=== PATIENT | female | born 1940 | race African-American/Black ===

== ENCOUNTER 2016-09-20 15:43 | Emergency (ER) | payer MEDICARE ==
[~2016-09-20] VITALS: Ht 160 cm; Wt 96.0 kg
[~2016-09-20 15:43] MED LIST: AMLO10TA4 PO; FURO-152 PO; GLIM4TAB2 PO; LOVA40TA73 PO; METO100T9 PO; OLME1TAB19 PO; RAMI10CA PO; SITA100T6 PO
[2016-09-20] MEDS ORDERED: ONDANSETRON 4MG ODT PO ONE (17:45)
[2016-09-20] MEDS ORDERED: HYDROCODONE/ACETAMINOPHEN 5/325MG TABLET PO ONE (17:45)
[2016-09-20 19:05] VITALS: BP 132/78
== END 2016-09-20 19:19 | disposition home or self-care (01) ==
LOC: ER 17:10
DX: M79.89 Other specified soft tissue disorders (principal); E11.9 Type 2 diabetes mellitus without complications; Z88.5 Allergy status to narcotic agent; Z88.6 Allergy status to analgesic agent; Z79.899 Other long term (current) drug therapy; Z90.49 Acquired absence of other specified parts of digestive tract; Z90.710 Acquired absence of both cervix and uterus
CPT/HCPCS: 73110; 73130; 99284; Q0162

== ENCOUNTER 2017-01-16 18:55 | Emergency (ER) | payer MEDICARE ==
[~2017-01-16] VITALS: Ht 157.5 cm; Wt 100.0 kg
[~2017-01-16 18:55] MED LIST changes: +ALT10 PO; -RAMI10CA PO; +SITA100T11 PO; -SITA100T6 PO
[2017-01-16] MEDS ORDERED: MORPHINE SULFATE 4 MG/ML CPJ (NOT FOR IM USE) IV STA (19:55)
[2017-01-16] MEDS ORDERED: ONDANSETRON HCL 4MG/2ML VIAL IV STA (19:55)
[2017-01-16] MEDS ORDERED: CLONIDINE 0.2MG TABLET PO ONE (20:00)
[2017-01-16 20:28] LABS: BASOPHILS % 1.8 % (0.0-2.0); EOSINOPHILS % 0.5 % (0.0-5.0); HEMATOCRIT. 36.1 % (36.0-48.0); HEMOGLOBIN. 11.7 g/dL (12.0-16.0); LYMPHOCYTES % 19.6 % (20.0-50.0); MEAN CORPUSCULAR HEMOGLOBIN 25.2 pg (28.0-32.0); MEAN CORPUSCULAR VOLUME 77.8 fL (81.0-99.0); MEAN PLATELET VOLUME 8.8 fl (7.4-10.4); MONOCYTES % 10.4 % (2.0-8.0); NEUTROPHILS % 67.7 % (40.0-76.0); PLATELET 199 x1000/uL (130-400); RED BLOOD CELL COUNT 4.64 mill/uL (4.2-5.4); RED CELL DISTRIBUTION WIDTH 14.7 % (11.6-14.6)
[2017-01-16 20:29] LABS: CHLORIDE 103 mEq/L (98-107)
[2017-01-16 20:34] LABS: INR 1.1; PARTIAL THROMBOPLASTIN TIME 30.1 sec (23.4-31.0); PROTHROMBIN TIME 11.7 sec (9.4-11.6)
[2017-01-16 20:39] LABS: CARBON DIOXIDE 32 mEq/L (21-32); TROPONIN I < 0.02 ng/mL (0.00-0.04)
[2017-01-16] MEDS ORDERED: HYDRALAZINE 20MG/ML VIAL IV ONE (22:15)
[2017-01-16 23:43] LABS: CLARITY URINE CLEAR (CLEAR); COLOR URINE YELLOW (YELLOW); GLUCOSE URINE NEGATIVE (NEGATIVE); KETONES URINE NEGATIVE (NEGATIVE); LEUKOCYTE ESTERASE URINE NEGATIVE (NEGATIVE); NITRITE URINE POSITIVE (NEGATIVE); OCCULT BLOOD URINE TRACE (NEGATIVE); PROTEIN URINE 3+ (NEGATIVE); SPECIFIC GRAVITY URINE 1.015 (1.005-1.030)
[2017-01-16 23:55] VITALS: BP 157/73
== END 2017-01-17 00:04 | disposition home or self-care (01) ==
LOC: ER 18:55
DX: M54.5 Low back pain (principal); N39.0 Urinary tract infection, site not specified; M19.90 Unspecified osteoarthritis, unspecified site; I10 Essential (primary) hypertension; E11.9 Type 2 diabetes mellitus without complications; Z90.49 Acquired absence of other specified parts of digestive tract; Z90.710 Acquired absence of both cervix and uterus; Z88.6 Allergy status to analgesic agent; Z88.8 Allergy status to other drugs, medicaments and biological substances
CPT/HCPCS: 36415; 71010; 72100; 76705; 80048; 81001; 84484; 85025; 85610; 85730; 93005; 96374; 96375; 99285; J0360; J2270; J2405

== ENCOUNTER 2023-10-13 10:10 | Inpatient (IN) | payer MEDICARE ==
[~2023-10-13] VITALS: Ht 157.5 cm; Wt 91.2 kg
[~2023-10-13 10:10] MED LIST changes: -GLIM4TAB2 PO; +GLIM4TAB36 PO
[2023-10-13] MEDS ORDERED: MECLIZINE 25MG TABLET PO ONE (11:00)
[2023-10-13] MEDS: MECLIZINE 12.5MG TABLET PO NR (11:27)
[2023-10-13 11:29] LABS: BASOPHILS % 0.8 % (0.0-2.0); EOSINOPHILS % 0.8 % (0.0-5.0); HEMATOCRIT. 37.5 % (36.0-48.0); HEMOGLOBIN. 11.8 g/dL (12.0-16.0); MEAN CORPUSCULAR HGB CONC 31.4 g/dL (31.0-37.0); MEAN CORPUSCULAR VOLUME 82.7 fL (81.0-99.0); MEAN PLATELET VOLUME 9.1 fl (7.4-10.4); MONOCYTES % 6.6 % (2.0-8.0); NEUTROPHILS % 55.8 % (40.0-76.0); PLATELET 300 x1000/uL (130-400); RED BLOOD CELL COUNT 4.53 mill/uL (4.2-5.4); RED CELL DISTRIBUTION WIDTH 15.1 % (11.6-14.6); WHITE BLOOD COUNT 6.4 x1000/uL (4.5-11.0)
[2023-10-13 11:53] LABS: CHLORIDE 102 mEq/L (98-107); POTASSIUM 3.2 mEq/L (3.5-5.1); SODIUM 142 mEq/L (136-145)
[2023-10-13 11:54] LABS: CARBON DIOXIDE 30 mEq/L (21-32)
[2023-10-13 11:55] LABS: CALCIUM 9.2 mg/dL (8.7-10.4)
[2023-10-13 11:59] LABS: CREATININE 1.8 mg/dL (0.6-1.0); GLUCOSE 167 mg/dL (70-105)
[2023-10-13 12:00] LABS: TROPONIN I HIGH SENSITIVITY 24 ng/L (3.0-34); UREA NITROGEN BLOOD 39 mg/dL (9-23)
[2023-10-13 12:11] LABS: CLARITY URINE CLEAR (CLEAR); COLOR URINE YELLOW (YELLOW); GLUCOSE URINE 2+ (NEGATIVE); KETONES URINE NEGATIVE (NEGATIVE); LEUKOCYTE ESTERASE URINE NEGATIVE (NEGATIVE); NITRITE URINE NEGATIVE (NEGATIVE); OCCULT BLOOD URINE NEGATIVE (NEGATIVE); PH URINE 5.5 (4.5-8.0); PROTEIN URINE NEGATIVE (NEGATIVE); SPECIFIC GRAVITY URINE 1.011 (1.005-1.030); UROBILINOGEN URINE 0.2 E.U./dL (0.2-1.0)
[2023-10-13 12:29] LABS: SQUAMOUS EPITHELIAL CELL URINE 1+ /lpf (RARE/1+)
[2023-10-13 12:30] LABS: BACTERIA URINE 1+; WBC URINE 0-2 /hpf (0-2)
[2023-10-13 12:31] LABS: RBC URINE NONE SEEN /hpf (0-2)
[2023-10-13] MEDS: AMLODIPINE 5MG TABLET PO ONE (13:43)
[2023-10-13] MEDS: POTASSIUM CHLORIDE 20MEQ/PACKET PO ONE (13:44)
[2023-10-13] MEDS: ENOXAPARIN 80MG/0.8ML SYR SUBCUT ONE (13:45)
[2023-10-13] MEDS: METOPROLOL TARTRATE 50MG TABLET PO SCH (21:00)
[2023-10-13] MEDS: AMLODIPINE 5MG TABLET PO SCH (21:00)
[2023-10-13] MEDS: ATORVASTATIN CALCIUM 10MG TABLET PO SCH (21:00)
[2023-10-13] MEDS: MECLIZINE 25MG TABLET PO SCH (22:45)
[2023-10-13] MEDS ORDERED: CLONIDINE 0.1MG TABLET PO PRN (22:45)
[2023-10-13] MEDS: SODIUM CHLORIDE 0.9% 1,000 ML IV SCH (22:45)
[2023-10-13] MEDS ORDERED: ONDANSETRON HCL 4MG/2ML INJ IV PRN (22:45)
[2023-10-13] MEDS ORDERED: ACETAMINOPHEN 325MG TABLET PO PRN (22:45)
[2023-10-14 05:53] LABS: CHLORIDE 102 mEq/L (98-107); POTASSIUM 3.1 mEq/L (3.5-5.1); SODIUM 143 mEq/L (136-145)
[2023-10-14 05:54] LABS: CARBON DIOXIDE 31 mEq/L (21-32)
[2023-10-14 05:59] LABS: CREATININE 1.6 mg/dL (0.6-1.0); GLUCOSE 131 mg/dL (70-105); TRIGLYCERIDE 179 mg/dL (0-150); UREA NITROGEN BLOOD 36 mg/dL (9-23)
[2023-10-14 06:00] LABS: LDL CHOLESTEROL 46 mg/dL (5-100)
[2023-10-14 06:01] LABS: CHOLESTEROL 111 mg/dL (<200); HDL CHOLESTEROL 39 mg/dL (>65)
[2023-10-14 06:02] LABS: THYROID STIMULATING HORMONE 2.79 uIU/mL (0.55-4.78)
[2023-10-14 06:22] LABS: BASOPHILS % 0.4 % (0.0-2.0); EOSINOPHILS % 1.2 % (0.0-5.0); HEMATOCRIT. 37.2 % (36.0-48.0); HEMOGLOBIN. 11.6 g/dL (12.0-16.0); LYMPHOCYTES % 34.2 % (20.0-50.0); MEAN CORPUSCULAR HEMOGLOBIN 25.7 pg (28.0-32.0); MEAN CORPUSCULAR HGB CONC 31.3 g/dL (31.0-37.0); MEAN CORPUSCULAR VOLUME 82.2 fL (81.0-99.0); MEAN PLATELET VOLUME 9.3 fl (7.4-10.4); MONOCYTES % 8.1 % (2.0-8.0); NEUTROPHILS % 56.1 % (40.0-76.0); PLATELET 269 x1000/uL (130-400); RED BLOOD CELL COUNT 4.53 mill/uL (4.2-5.4); RED CELL DISTRIBUTION WIDTH 14.7 % (11.6-14.6)
[2023-10-14] MEDS: ENOXAPARIN 30MG/0.3ML SYR SUBCUT SCH (06:49)
[2023-10-14] MEDS: ASPIRIN 81MG EC TABLET PO SCH (08:00)
[2023-10-14 09:00] VITALS: BP_SYST 129; BP_DIAS 56; BP_DIAS 59; PULSE 64; RESP 18; TEMP 98
[2023-10-14 09:59] LABS: *AMPHETAMINES SCREEN URINE NEGATIVE (NEGATIVE); *BARBITURATES SCREEN URINE NEGATIVE (NEGATIVE); *COCAINE SCREEN URINE NEGATIVE (NEGATIVE); ECSTASY MDMA SCREEN URINE NEGATIVE (NEGATIVE); METHADONE URINE SCREEN NEGATIVE (NEGATIVE); OPIATES URINE SCREEN NEGATIVE (NEGATIVE); PHENCYCLIDINE URINE SCREEN NEGATIVE (NEGATIVE)
[2023-10-14] MEDS: POTASSIUM CHLORIDE 20MEQ/PACKET PO NR (11:17)
[2023-10-14] MEDS: MAGNESIUM OXIDE 400MG TABLET PO SCH (11:17)
[2023-10-14 12:00] VITALS: BP 153/43; PULSE 54; RESP 20; TEMP 97.6
[2023-10-14] MEDS: MAGNESIUM 2 G PREMIX 50 ML IV NR (13:20)
[2023-10-14] MEDS ORDERED: HYDR50TA40 MT (13:55)
[2023-10-14] MEDS ORDERED: ALLO100T MT (13:55)
[2023-10-14] MEDS ORDERED: DAPA10TA MT (13:55)
[2023-10-14] MEDS ORDERED: INSU100I28 SQ (13:55)
[2023-10-14 16:00] VITALS: BP 140/58; PULSE 66; RESP 20; TEMP 97.2
[2023-10-14 20:00] VITALS: BP 175/55; PULSE 70; RESP 18; TEMP 96.6
[2023-10-14 20:05] VITALS: BP 161/62
[2023-10-14 20:08] VITALS: BP 177/79
[2023-10-14] MEDS: METOPROLOL TARTRATE 25MG TABLET PO SCH (20:56)
[2023-10-15 00:01] VITALS: BP 152/62; PULSE 65; RESP 19; TEMP 98.1
[2023-10-15 04:00] VITALS: BP 155/44; PULSE 63; RESP 18; TEMP 98
[2023-10-15 08:00] VITALS: BP_SYST 174; BP_SYST 175; BP_SYST 179; BP_DIAS 67; BP_DIAS 72; BP_DIAS 73; PULSE 71; RESP 18; TEMP 97.6
[2023-10-15 12:00] VITALS: BP 113/68; PULSE 82; RESP 18; TEMP 98
[2023-10-15] MEDS: HYDRALAZINE HCL 25MG TABLET PO SCH (13:35)
[2023-10-15] MEDS ORDERED: MECL-299 MT (15:53)
[2023-10-15 16:34] VITALS: BP 148/51; PULSE 73; TEMP 97.7; O2SAT 96
== END 2023-10-15 17:33 | disposition home or self-care (01) | DRG 684 ==
LOC: ER 10:30 → EDBEDREQTM 14:48 → EDBEDREQ 14:48 → 5WST 16:21 → 8WST 10-14 08:24
PROVIDERS: ADMIT Internal Medicine; ATTEND Internal Medicine
DX: N17.9 Acute kidney failure, unspecified (principal); I10 Essential (primary) hypertension; E11.9 Type 2 diabetes mellitus without complications; I16.0 Hypertensive urgency; E87.6 Hypokalemia; E86.1 Hypovolemia; E78.5 Hyperlipidemia, unspecified; E83.42 Hypomagnesemia; Z90.710 Acquired absence of both cervix and uterus; Z86.16 Personal history of COVID-19; Z79.899 Other long term (current) drug therapy; Z79.84 Long term (current) use of oral hypoglycemic drugs; Z79.4 Long term (current) use of insulin
CPT/HCPCS: 36415; 71045; 80048; 80061; 80305; 81003; 82962; 83036; 83735; 83880; 84443; 84484; 85025; 93005; 93306; 93880; 99285; J1650; J2405; J3475; J7030; J8597